=== PATIENT | male | born 1985 | race African-American/Black ===

== ENCOUNTER 2017-01-15 11:55 | Emergency (ER) | payer OTHER ==
[~2017-01-15] VITALS: Ht 177.8 cm; Wt 74.8 kg
[2017-01-15 11:56] VITALS: BP 121/81
== END 2017-01-15 12:18 | disposition home or self-care (01) ==
LOC: ER 11:55
DX: L72.3 Sebaceous cyst (principal)

== ENCOUNTER 2018-09-03 13:19 | Emergency (ER) | payer OTHER ==
[~2018-09-03] VITALS: Ht 177.8 cm; Wt 67.1 kg
[2018-09-03 13:53] LABS: URINE BILIRUBIN NEGATIVE (Negative); URINE BLOOD TRACE (Negative); URINE CLARITY CLEAR; URINE COLOR YELLOW; URINE GLUCOSE-RANDOM* NEGATIVE (Negative); URINE KETONES NEGATIVE (Negative); URINE NITRITE-REFLEX NEGATIVE (Negative); URINE PROTEIN (DIPSTICK) 1+ (Negative); URINE SPECIFIC GRAVITY >= 1.030 (1.005-1.035); URINE UROBILINOGEN 0.2 E.U./dl (0.2-1.0)
[2018-09-03 13:55] LABS: URINE LEUKOCYTES-REFLEX 1+ (Negative)
[2018-09-03 14:09] LABS: BACTERIA-REFLEX 1-9 Few /HPF (None Seen); CASTS None Seen /LPF (None Seen); CRYSTALS None Seen /LPF (None Seen); SQUAMOUS None Seen /LPF (0-3); URINE RBC 0-2 Rare /HPF (0-2)
[2018-09-03 14:56] VITALS: BP 144/89
== END 2018-09-03 14:50 | disposition home or self-care (01) ==
LOC: ER 13:19
PROVIDERS: Physician Assistant
DX: Z20.2 Contact with and (suspected) exposure to infections with a predominantly sexual mode of transmission (principal); R36.9 Urethral discharge, unspecified

== ENCOUNTER 2020-11-22 11:00 | Emergency (ER) | payer OTHER ==
[~2020-11-22] VITALS: Ht 177.8 cm; Wt 79.4 kg
[2020-11-22 11:12] VITALS: BP 134/79
[2020-11-22 11:16] LABS: URINE BILIRUBIN NEGATIVE (Negative); URINE BLOOD TRACE (Negative); URINE CLARITY SL CLOUDY; URINE COLOR YELLOW; URINE GLUCOSE-RANDOM* NEGATIVE (Negative); URINE KETONES NEGATIVE (Negative); URINE NITRITE-REFLEX NEGATIVE (Negative); URINE PROTEIN (DIPSTICK) NEGATIVE (Negative)
[2020-11-22 11:17] LABS: URINE LEUKOCYTES-REFLEX 2+ (Negative)
[2020-11-22 11:25] LABS: BACTERIA-REFLEX 1-9 Few /HPF (None Seen); CASTS None Seen /LPF (None Seen); CRYSTALS None Seen /LPF (None Seen); SQUAMOUS 0-3 Few /LPF (0-3); URINE RBC 1-2 Rare /HPF (NONE SEEN); URINE WBC-REFLEX >25 Many /HPF (0-5)
[2020-11-22] MEDS ORDERED: CEPHALEXIN500 MG PO (11:34)
== END 2020-11-22 11:56 | disposition home or self-care (01) ==
LOC: ER 11:00
PROVIDERS: Nurse Practitioner Family
DX: N39.0 Urinary tract infection, site not specified (principal); Z11.3 Encounter for screening for infections with a predominantly sexual mode of transmission

== ENCOUNTER 2020-12-27 13:24 | Emergency (ER) | payer OTHER ==
[~2020-12-27] VITALS: Ht 177.8 cm; Wt 78.9 kg
[~2020-12-27 13:24] MED LIST: CEPHALEXIN500 MG PO
[2020-12-27 13:29] VITALS: BP 115/69
== END 2020-12-27 14:17 | disposition home or self-care (01) ==
LOC: ER 13:24
PROVIDERS: Nurse Practitioner
DX: N34.2 Other urethritis (principal); Z20.2 Contact with and (suspected) exposure to infections with a predominantly sexual mode of transmission

== ENCOUNTER 2021-05-30 09:23 | Emergency (ER) | payer OTHER ==
[~2021-05-30] VITALS: Ht 177.8 cm; Wt 77.1 kg
[2021-05-30 09:24] VITALS: BP 145/96
== END 2021-05-30 09:42 | disposition home or self-care (01) ==
LOC: ER 09:23
PROVIDERS: Emergency Medicine
DX: N34.2 Other urethritis (principal)